=== PATIENT | female | born 1990 | race Hispanic/Latino ===

== ENCOUNTER 2024-06-06 21:38 | Emergency (ER) | payer SELFPAY ==
[~2024-06-06] VITALS: Ht 157.5 cm; Wt 62.8 kg
[2024-06-06 22:21] VITALS: PULSE 75; RESP 20; TEMP 97.4
[2024-06-06 23:08] LABS: STREPTOCOCCUS GRP A ANTIGEN NEGATIVE (NEGATIVE)
[2024-06-06 23:17] LABS: INFLUENZA A AG NEGATIVE (NEGATIVE)
[2024-06-06 23:18] LABS: CORONAVIRUS COVID-19 AG NEGATIVE (NEGATIVE); INFLUENZA B AG NEGATIVE (NEGATIVE)
[2024-06-06] MEDS ORDERED: AZITHROMYCIN250 MG PO (23:50)
[2024-06-06] MEDS ORDERED: PROTONIX20 MG PO (23:50)
[2024-06-06] MEDS: MAGNESIUM/ALUMINUM/SIMETHICONE 30 ML UDC PO STA (23:56)
[2024-06-06] MEDS: LIDOCAINE VISC 2% SOLN 15 ML UDC PO STA (23:56)
[2024-06-06] MEDS: BELLADONNA ALK/PHENOBARBITAL 5 ML UDC PO ONE (23:56)
[2024-06-07 01:00] VITALS: BP 129/84; PULSE 74; RESP 18; TEMP 98.3; O2SAT 98
== END 2024-06-07 00:30 | disposition home or self-care (01) ==
LOC: ER 21:45
DX: R05.9 Cough, unspecified (principal); R10.13 Epigastric pain; F41.9 Anxiety disorder, unspecified; F32.A Depression, unspecified
CPT/HCPCS: 71046; 83518; 87070; 93005; 99284